=== PATIENT | female | born 1960 | race Caucasian/White ===

== ENCOUNTER 2024-10-16 15:50 | Outpatient (CLI) | payer BC, SELFPAY ==
--- OUTSIDE RECORDS SUMMARY | 2024-10-16 15:59 | XMS_ITS | Clinical Summary ---
Author Organization [facility] Address [address] [place] [address] Care Team Providers Care Director Of Real Estate Name Role Phone Josr Rodriguez MD Primary Care Provider [phone] Allergies Active Allergy Reactions Criticality Noted Date Comments Penicillins Unknown Low 10/19/2018 Childhood Medications losartan-hydroC HLOROthiazide (HYZAAR) 100-12.5 mg per tablet Take 1 tablet by mouth daily 11/04/2021 Active omeprazole (PriLOSEC) 40 mg capsule Take 1 Capsule (40 mg) by mouth daily. 10/28/2022 Active pravastatin (PRAVACHOL) 40 mg tablet Take 1 tablet (40 mg total) by mouth daily Active Active Problems No known active problems Medical History Medical History Date Comments Hypertension GERD (gastroesophageal reflux disease) Family History Medical History Relation Name Comments Breast cancer Neg Hx Ovarian cancer Neg Hx Thyroid cancer Neg Hx Social History Tobacco Use Types Packs/Day Years Used Date Smoking Tobacco: Former Cigarettes Q uit: 2012 Smokeless Tobacco: Never Tobacco Cessation:Counseling Given: Not Answered Comments No Sex and Gender Information Value Date Recorded Sex Assigned at Not on file 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 Gender Identity Not on file Sexual Orientation Not on file Obstetrics History Para Term AB IAB SAB Ectopic Multiple Livin g Live Births 2 2 2 Date Outcome GA Total Labor Labor/2nd/3rd Weight Sex Type Anes PTL Marge A1 A5 Name Clin Term Term Last Filed Vital Signs Vital Sign Reading Time Taken Comments Blood Pressure 130/80 10/22/2023 8:22 AM CDT Pulse 97 10/22/2023 8:22 AM CDT Temperature 37.4 C (99.4 F) 10/22/2023 8:22 AM CDT Respiratory Rate 21 10/22/2023 8:22 AM CDT Oxygen Saturation 98% 10/22/2023 8:22 AM CDT Inhaled Oxygen Concentration - - Weight 94.3 kg (207 lb 12.8 oz) 10/22/2023 8:22 AM CDT Height 170.2 cm (5' 7 ) 12/25/2022 10:0 2 AM CDT Body Mass Index 32.55 12/25/2022 10:02 AM CDT Plan of Treatment Health Maintenance Due Date Last Done Comments Cervical Cancer Screening 1960 Colon Cancer Screening-Colonoscopy 1960 Depression Screening 1960 Hepatitis C Screening 1960 DTaP/Tdap/Td Vaccine (1 - Tdap) 12/24/1971 Hepatitis B Screening 1978 Regular Well Visit/Exam 18-64 1978 Zoster Vaccine (1 of 2) 2010 Covid-19 Vaccine (2 - season) 2024 08/04/2020 Influenza Vaccine (Season Ended) 2025 Breast Cancer Screening-Mammogram 02/08/2025 02/09/2024, 12/25/2022, 12/11/2021, Additional history exists Pneumococcal vaccine <65 Aged Out No longer eligible based on patient's age to complete this topic Procedures Procedure Name Priority Date/Time Associated Diagnosis Comments SCREENING MAMMOGRAM BILATERAL W JERAD Schedule Routine, Read Routine (OP Routine) 02/09/2024 3:22 PM CDT Screening mammogram for breast cancer from Last 3 Months or Most Recently Relevant to Health Maintenance Results * Screening Mammogram Bilateral W Jerad (02/09/2024 3:22 PM CDT) Anatomical Region Laterality Modality Breast Bilateral Mammography 02/09/2024 4:00 PM CDT Impressions 02/09/2024 4:00 PM CDT There is no mammographic evidence of malignancy. A 1 year screening mammogram is recommended. BI-RADS: 1 - Negative. The patient has been or will be contacted. The patient will be entered into a reminder system with a target due date of 1 year for her next mammogram. Electronically signed by: JAN Morse 02/09/2024 4:00 PM CDT EXAMINATION: SCREENING MAMMOGRAM BILATERAL W JERAD ORDERING HEALTHCARE PROVIDER: MARY MEJIA HISTORY: Routine screening mammography. COMPARISON: 12/25/2022, 12/11/2021, 12/03/2020, 10/19/2018. TECHNIQUE: CC and MLO views of both breasts were obtained with digital technique using digital breast tomosynthesis with C view. Computer aided detection was utilized. FINDINGS: DENSITY: There are scattered areas of fibroglandular density. BREASTS: There is no new suspicious finding in either breast on mammogram. us Mary Mejia COOKER CLEANER IMG MAMMO PROCEDURES Final Res ult from Last 3 Months or Most Recently Relevant to Health Maintenance Insurance [employer] Referly [employer]ESS CHOICE Care Teams Director Of Real Estate Relationship Specialty Start Date End Date Josr Rodriguez MD [address] [place] [address] PCP - General 08/31/16
--- OUTSIDE RECORDS SUMMARY | 2024-10-16 15:59 | XMS_ITS | Continuity of Care Document ---
Author Organization [facility] Address [address] [place] [address] Phone Care Team Providers Care Senior Media Director Name Role Phone Lino Mills MD Unavailable Unavailable Advance Directives Directive Yes / No Effective Date File Name No Information Encounters Encounter Description Practice Location Reason(s) For Visit Diagnoses Date Provider Providers Copied on Encounter [facility], [address] [place] [address], [facility], tel:[phone] [facility] No Information Vito- [address] [place], [place], [id number] . tel: [phone] [facility], [address], [facility], tel:[phone] [facility], subsequent encounter [address] [place], [place], [id number] . tel: [phone] Family History Family Member Type Diagnosis Age At Onset No Information Payers Payer name Insurance type Covered alliance party ID Stephen good(s) [employer] [id number] Social History Type Description Quantity Date Captured Comments Sex Female Smoking Status No Information Chief Complaint And Reason For Visit No Information Reason For Referral Reason For Referral No Information Plan Of Treatment Date Type Action Status Referral Ordered: MRI ANY JT UXTR C+ MATRL LT shoulder ordered History Of Present Illness Encounter Date Complaint History Of Prese nt Illness No Information Functional Status Date Functional Assessmen t No Information Instructions Date Instruction Additional Infor mation No Information Assessments Type Assessment Date No Information Patient Care Teams Name Effective Dates (start - stop) Status Members No Information
--- OUTSIDE RECORDS SUMMARY | 2024-10-16 15:59 | XMS_ITS | Clinical Summary ---
Author Organization [facility] Address [address] Severino: Epic Prelude ADT MILIND BENZ [address] Care Team Providers Care Director Of Events Name Role Phone Unavailable Primary Care Provider Unavailabl e Medications clotrimazole-be tamethasone (LOTRISONE) 1-0.05 % Cream Apply to rash areas twice daily for 10 days 45 Gram 12/21/2021 4:49 PM CDT 12/21/2021 Active omeprazole (PriLOSEC) 40 mg Capsule, Delayed Release(E.C.) Take 1 Capsule by mouth daily. 90 Capsule 02/03/2022 4:39 PM CDT 02/02/2022 Active losartan-hydroC HLOROthiazide (HYZAAR) 100-12.5 mg tablet TAKE ONE TABLET BY MOUTH ONCE DAILY 90 Tablet 1 05/05/2023 10:15 AM NUCLEAR REACTOR TECHNICIAN 05/25/2022 Active losartan-hydroC HLOROthiazide (HYZAAR) 100-12.5 mg tablet Take 1 Tablet by mouth daily. 90 Tablet 1 02/23/2023 6:47 PM CDT 10/28/2022 Active doxycycline hyclate (VIBRAMYCIN) 100 mg capsule TAKE 1 CAPSULE BY MOUTH TWICE DAILY FOR 10 DAYS. 20 Capsule 11/25/2022 11:16 AM CDT 11/25/2022 Active diazePAM (VALIUM) 5 mg tablet Take 1 tablet at bedtime the night prior to dental appointment, then take 1-2 tablets 1 hour prior to dental appointment. 6 Tablet 08/16/2023 1:03 PM CDT 06/06/2023 Active cephALEXin (KEFLEX) 500 mg capsule Take 1 capsule (500 mg total) by mouth 2 (two) times a day for 7 days 14 Capsule 10/22/2023 9:14 AM CDT 10/22/2023 Active pravastatin (PRAVACHOL) 40 mg tablet Take 1 Tablet by mouth every evening. 90 Tablet 1 06/13/2024 12:08 PM NUCLEAR REACTOR TECHNICIAN 02/29/2024 Active losartan-hydroC HLOROthiazide (HYZAAR) 100-12.5 mg tablet Take 1 Tablet by mouth daily. 90 Tablet 1 10/09/2024 2:20 PM CDT 04/30/2024 Active omeprazole (PriLOSEC) 40 mg Capsule, Delayed Release(E.C.) Take 1 Capsule (40 mg) by mouth daily. 90 Capsule 06/13/2024 12:08 PM NUCLEAR REACTOR TECHNICIAN 06/11/2024 Active cephALEXin (KEFLEX) 500 mg capsule Take 1 Capsule (500 mg) by mouth 2 times daily for 5 days. 10 Capsule 10/12/2024 12:18 PM CDT 10/11/2024 Active furosemide (LASIX) 20 mg tablet Take 1 Tablet (20 mg) by mouth once daily for 5 days, then hold. 90 Tablet 3 10/12/2024 12:18 PM CDT 10/11/2024 Active Encounters Date Type Department Care Team Description 08/07/2024 External Device Data [facility] ABSTRACTION Provider, Abstract 08/07/2024 External Device Data [facility] ABSTRACTION Provider, Abstract from Last 3 Months Social History Tobacco Use Types Packs/Day Years Used Date Smoking Tobacco: Never Assessed Comments Unknown Sex and Gender Information Value Date Recorded Sex Assigned at Not on file Legal Sex Female 3:27 PM CDT Gender Identity Not on file Sexual Orientation Not on file Plan of Treatment Health Maintenance Due Date Last Done Comments DTAP/TDAP/TD VACCINES (1 - Tdap) 12/24/1979 HPV/Cotest (21-29) 1981 CERVICAL CANCER SCREENING 1990 HPV/Cotest (30-65) 1990 PAP SMEAR 1990 BREAST CANCER SCREENING 2000 COLORECTAL SCREENING 2005 Colorectal Cancer Screening 2005 FIT-DNA Q 3 years 2005 FIT/FOBT Q 1 year 2005 Flex Sig/CT Colonography Q 5 years 2005 ZOSTER VACCINE (1 of 2) 2010 INFLUENZA VACCINE (#1) 2023 RSV VACCINE (60+ or ) (1 - 1-dose 75+ series) 12/24/2035 Insurance RX [employer] (INTERNAL) [facility]
--- OUTSIDE RECORDS SUMMARY | 2024-10-16 15:59 | XMS_ITS | Clinical Summary ---
Author Organization [facility] Address [address] [facility], [facility] [address] [place] [address] Phone Care Team Providers Care Medical Researcher Name Role Phone Josr Rodriguez MD Primary Care Provider Luis Jhaveri DPM Unavailable [phone] Mendez Sultana MD Unavailable [phone] Michele Orr MD Unavailable Allergies Active Allergy Reactions Criticality Noted Date Comments Penicillins Unknown As child Medications pravastatin (PRAVACHOL) 40 MG Tablet Take 1 Tablet by mouth every evening. 90 Tablet 1 02/29/2024 Active losartan-hydroc hlorothiazide (HYZAAR) 100-12.5 MG Tablet Take 1 Tablet by mouth daily. 90 Tablet 1 04/30/2024 Active omeprazole (PriLOSEC) 40 MG CAPSULE DELAYED RELEASE Take 1 Capsule (40 mg) by mouth daily. 90 Capsule 06/11/2024 Active furosemide (LASIX) 20 MG Tablet Daily for 5 days and then hold 90 Tablet 3 10/11/2024 Active cephALEXin (KEFLEX) 500 MG Capsule Take 1 Capsule by mouth 2 times daily for 5 days. 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 Resolved Problems Problem Noted Date Diagnosed Date Resolved Date Shortness of breath 12/09/2021 06/28/19 Synovitis of right foot 12/09/201506/01 Synovitis of left foot 12/09/201506/28 Sesamoiditis 12/09/2015 06/28/2022 Encounters Date Type Department Care Team Description 10/12/2024 Results Follow-Up [facility] Internal Medicine [facility] [address] [place] [address] Rupinder Valle, JHON CREATINE KINASE (CK) TOTAL, US BILATERAL DUPLEX LOWER EXTREMITY VEINS, XR FOOT 3 OR MORE VIEWS BILATERAL 10/11/2024 3:17 PM CDT - 10/11/2024 11:59 PM CDT [facility] [address] [place] [address] Rupinder Valle, JHON Discharge Disposition: Discharged to home or Selfcare 10/11/2024 2:24 PM CDT - 10/11/2024 3:16 PM CDT Hospital Encounter [facility] Ultrasound [address] [place] [address] Rupinder Valle, JHON Discharge Disposition: Discharged to home or Selfcare 10/11/2024 1:00 PM CDT Office Visit [facility] Primary Care [facility] [address] [place] [address] Rupinder Valle, JHON Leg swelling (Primary Dx); Pain in both feet; Redness of skin; Muscle pain Discharge Disposition: Discharged to home or Selfcare 10/11/2024 Results Follow-Up [facility] Care Access [address] [address] Rupinder Valle, PAC ALT (SGPT), AST (SGOT) 10/11/2024 Travel 08/20/2024 Telephone [facility] [address] [place] [phone] Josr Rodriguez MD 08/06/2024 Results Follow-Up [facility] [address] [place] [phone] Josr Rodriguez MD LIPID PANEL, CMP (COMPREHENSIVE METABOLIC PANEL) 08/01/2024 8:15 AM SERVICE OFFICER Office Visit [facility] [address] [place] [address] Josr Rodriguez MD Essential hypertension, benign (Primary Dx); Acute bilateral low back pain without sciatica; Other hyperlipidemia; GERD without esophagitis Discharge Disposition: Discharged to home or Selfcare 08/01/2024 Travel 07/31/2024 Travel from Last 3 Months Immunizations Immunization Administration Dates Next Due Covid-19 Vaccine, Vector-nr, Rs-ad26, Pf, 0.5 Ml (Simple Car Wash/J&J) 08/04/2020 Family History Medical History Relation Name Comments No Known Problems Daughter 1 No Known Problems Daughter 2 Cancer Father lung Lung Cancer Father Neurofibromatosis Father Heart Disease Maternal Grandfather Heart Disease Maternal Grandmother Heart Attack Mother Heart Disease Mother High Cholesterol Mother Hypertension Mother Cancer Paternal Grandfather Cancer Paternal Grandmother High Cholesterol Sister 1 No Known Problems Sister 2 Relation Name Status Comments Daughter 1 Alive Daughter 2 Alive Father Maternal Grandfather Maternal Grandmother Mother Paternal Grandfather Paternal Grandmother Sister 1 Alive Sister 2 Alive Social History Tobacco Use Types Packs/Day Years Used Date Smoking Tobacco: Former Cigarettes 1 15 2010 Passive Smoke Exposure: Past Smokeless Tobacco: Never Tobacco Cessation:Counseling Given: Not Answered Alcohol Use Standard Drinks/Week Comments Yes 0 (1 standard drink = 0.6 oz pur e alcohol) rarely [facility] Utilities Answer Date Recorded In the past 12 months has th e electric, gas, oil, or water [employer] threatened to shut off services in your home? No 01/31/2024 Social Connection and Isolat ion Panel [NHANES] Answer Date Recorded In a typical week, how many times do you talk on the phone with family, friends, or neighbors? More than three times a week 01/31/2024 How often do you get togethe r with friends or relatives? More than three times a week 01/31/2024 How often do you attend chur ch or alevism services? Never 01/31/2024 Do you belong to any clubs o r organizations such as zoroastrianism groups, unions, fraternal or athletic groups, or school groups? No 01/31/2024 How often do you attend meet ings of the clubs or organizations you belong to? Never 01/31/2024 Are you , , di vorced, , never , or living with a partner? 01/31/2024 AUDIT-C Answer Date Recorded Q1: How often do you have a drink containing alc ohol? Monthly or less 01/31/2024 Q2: How many drinks containi ng alcohol do you have on a typical day when you are drinking? 1 or 2 01/31/2024 Q3: How often do you have si x or more drinks on one occasion? Never 01/31/2024 Overall Financial Resource Strain (CARDIA) Answe r Date Recorded How hard is it for you to pa y for the very basics like food, housing, medical care, and heating? Not very hard 01/31/2024 PHQ-2 Answer Date Recorded Total Score - Questions 1-9 0 09/2024 [facility] - Occupational Stress Questionnaire Answer Date Recorded Do you feel stress - tense, restless, nervous, or anxious, or unable to sleep at night because your mind is troubled all the time - these days? Only a little 01/31/2024 Exercise Vital Sign Answer Date Recorde d On average, how many days pe r week do you engage in moderate to strenuous exercise (like a brisk walk)? 2 days 01/31/2024 On average, how many minutes do you engage in exercise at this level? 120 min 01/31/2024 Hunger Vital Sign Answer Date Recorded Within the past 12 months, y ou worried that your food would run out before you got the money to buy more. Never true 01/31/20 24 Within the past 12 months, t he food you bought just didn't last and you didn't have money to get more. Never true 01/31/2024 PRAPARE - Transportation Answer Date Re corded In the past 12 months, has l ack of transportation kept you from medical appointments or from getting medications? No 07/2023 In the past 12 months, has l ack of transportation kept you from meetings, work, or from getting things needed for daily living? No 01/31/2024 Housing Stability Vital Sign Answer Herrera e Recorded In the last 12 months, was t here a time when you were not able to pay the mortgage or rent on time? No 07/05/2023 In the last 12 months, how many places have you lived? 2 07/05/2023 In the last 12 months, was t here a time when you did not have a steady place to sleep or slept in a senior care (including now)? No 07/05/2023 Housing Stability Vital Sign Answer Herrera e Recorded In the last 12 months, was t here a time when you were not able to pay the mortgage or rent on time? No 01/31/2024 Number of Times Moved in the Last Year Not on fi le 01/31/2024 At any time in the past 12 m [facility], were you homeless or living in a senior care (including now)? 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 Not on file Not on file Not on file Last Filed Vital Signs Vital Sign Reading Time Taken Comments Blood Pressure 140/84 10/11/2024 1:02 PM CDT Pulse 124 10/11/2024 1:02 PM CDT Temperature 36.3 C (97.3 F) 10/11/2024 1:02 PM CDT Respiratory Rate 12 10/11/2024 1:02 PM CDT Oxygen Saturation 98% 10/11/2024 1:02 PM CDT Inhaled Oxygen Concentration - - Weight 95.3 kg (210 lb) 08/01/2024 8:15 AM SERVICE OFFICER Height 170.2 cm (5' 7 ) 08/01/2024 8:15 AM SERVICE OFFICER Body Mass Index 32.89 08/01/2024 8:15 AM SERVICE OFFICER Plan of Treatment Upcoming Encounters Date Type Department Care Team (Late st Contact Info) Description 02/04/2025 8:45 AM CDT Office Visit [facility] - Internal Medicine - [place] [address] [place] [address] Josr Rodriguez MD [address] [place] [address] Health Maintenance Due Date Last Done Comments Hepatitis C Virus (HCV) Screening 1960 TdaP Immunization 1960 HPV/Cotest 1990 Cologuard 2010 Pneumococcal Immunization (50+ years) (1 of 1 - PCV) 2010 Zoster Immunization (1 of 2) 2010 Immunochemical Fecal Occult Blood 07/04/2020 07/04/2019 SARS-COV-2 Immunization ( season) 2024 06/08/2021, 08/04/2020 Mammogram 02/08/2025 02/09/2024, 11/28, 12/25/2022, Additional history exists Cervical Cancer Screening (CCS) 11/08/2025 Pap Smear 11/08/2025 11/08/2022, 07/04/2019 Colonoscopy 06/14/2029 06/14/2024, 05/30, 02/09/2022, Additional history exists Colorectal Cancer Screening 06/14/2029 Respiratory Syncytial Virus (RSV) Immunization (Adult) (1 - 1-dose 75+ series) 12/24/2035 06/14/2024, 01/28, 10/02/2013, Additional history exists Hepatitis B Immunization Aged Out No longer eligible based on patient's age to complete this topic Human Papillomavirus (HPV) Immunization Aged Out No longer eligible based on patient's age to complete this topic Influenza Immunization Discontinued Meningococcal Immunization (ACWY) Aged Out No longer eligible based on patient's age to complete this topic Rotavirus Immunization Aged Out No lo nger eligible based on patient's age to complete this topic Procedures Procedure Name Priority Date/Time Associated Diagnosis Comments XR FOOT 3 OR MORE VIEWS BILATERAL Stat with Interpretation 10/11/2024 3:30 PM CDT Pain in both feet US BILATERAL DUPLEX LOWER EXTREMITY VEINS Stat with Interpretation 10/11/2024 3:08 PM CDT Leg swelling CREATINE KINASE (CK) TOTAL Routine 10/11/2024 2:23 PM CDT Muscle pain AST (SGOT) Routine 10/11/2024 2:23 PM CDT Other hyperlipidemia ALT (SGPT) Routine 10/11/2024 2:23 PM CDT Other hyperlipidemia EXTERNAL PHYSICAL THERAPY REFERRAL Routine 08/28/2024 12:00 AM CDT Acute bilateral low back pain without sciatica CMP (COMPREHENSIVE METABOLIC PANEL) Routine 08/01/2024 Essential hypertension, benign Other hyperlipidemia LIPID PANEL Routine 08/01/2024 Essential hypertension, benign Other hyperlipidemia MAMMOGRAM BILATERAL GENERIC 12/25/2022 12:00 AM CDT HM COLONOSCOPY Routine 10/02/2013 from Last 3 Months or Most Recently Relevant to Health Maintenance Results * XR FOOT 3 OR MORE VIEWS BILATERAL (10/11/2024 3:30 PM CDT) Anatomical Region Laterality Modality LOWER EXTREMITY, foot Bilateral Digital Ra diography 10/11/2024 5:05 PM CDT Impressions 10/11/2024 5:07 PM CDT IMPRESSION: No acute osseous abnormality. Bilateral (lxxv-npvfkcl-rdeg-right) osteoarthritis of the foot. New spurring of the base of the 5th metatarsal likely degenerative. Mild bilateral soft tissue swelling. Narrative 10/11/2024 5:07 PM CDT EXAM DESCRIPTION: XR FOOT 3 OR MORE VIEWS BILATERAL REASON FOR STUDY: pain in bilat feet x 3 days. NKI. swelling is present. TECHNIQUE: 7 view(s) of the bilateral foot COMPARISON: Right foot radiographs 12/09/2015 FINDINGS: Bilateral calcaneal enthesophytes. New spurring at the base of the right 5th metatarsal when compared to 2016, likely degenerative. Mild osteoarthritis of the intertarsal joints (gmqz-okpssbg-llgf-right). No acute fracture, malalignment or dislocation. Mild bilateral soft tissue swelling. THIS IS AN ELECTRONICALLY VERIFIED FINAL REPORT 10/11/2024 5:05 PM - Electronically signed by Myra Soriano M.D. FT: FT Report ID: [id number] Reading Location: [id number] Procedure Note Myra Hoffmann MD - 10/11/2024 EXAM DESCRIPTION: XR FOOT 3 OR MORE VIEWS BILATERAL REASON FOR STUDY: pain in bilat feet x 3 days. NKI. swelling is present. TECHNIQUE: 7 view(s) of the bilateral foot COMPARISON: Right foot radiographs 12/09/2015 FINDINGS: Bilateral calcaneal enthesophytes. New spurring at the base of the right 5th metatarsal when compared to 2016, likely degenerative. Mild osteoarthritis of the intertarsal joints (ilkv-xdblhrx-hhxq-right). No acute fracture, malalignment or dislocation. Mild bilateral soft tissue swelling. THIS IS AN ELECTRONICALLY VERIFIED FINAL REPORT 10/11/2024 5:05 PM - Electronically signed by Myra Soriano M.D. FT: FT Report ID: [id number] Reading Location: [id number] IMPRESSION: No acute osseous abnormality. Bilateral (pwkr-mjjuadq-ihhs-right) osteoarthritis of the foot. New spurring of the base of the 5th metatarsal likely degenerative. Mild bilateral soft tissue swelling. Rupinder Moodyelle Tori [facility] IMG DIAGNOSTIC OR DERABLES Final Result * US BILATERAL DUPLEX LOWER EXTREMITY VEINS (10/11/2024 3:08 PM CDT) Anatomical Region Laterality Modality vascular Bilateral Ultrasound 10/11/2024 4:03 PM CDT Impressions 10/11/2024 4:06 PM CDT IMPRESSION: No lower extremity deep venous thrombosis. Narrative 10/11/2024 4:06 PM CDT EXAM DESCRIPTION: US BILATERAL DUPLEX LOWER EXTREMITY VEINS REASON FOR STUDY: lower leg edema in bilateral ankles with erythema and tenderness to touch for 2/3 days. TECHNIQUE: Grayscale, color and spectral Doppler imaging of the deep venous system of the bilateral lower extremities was performed. Images stored on PACS. COMPARISON: None FINDINGS: The common femoral, common femoral-saphenous vein confluence, visualized profunda femoral, superficial femoral, and popliteal veins are readily compressible bilaterally with no intraluminal thrombus on garcia scale images. There is normal color and spectral Doppler signal, including augmentation. Greater saphenous vein appears patent. Visualized calf veins are patent. There are several lymph nodes within the groin, all containing fatty amber and nonenlarged by size criteria. THIS IS AN ELECTRONICALLY VERIFIED FINAL REPORT 10/11/2024 4:03 PM - Electronically signed by Cristian Araujo M.D. AM: AM Report ID: [id number] Reading Location: [id number] Procedure Note Cristian Araujo MD - 10/11/2024 EXAM DESCRIPTION: US BILATERAL DUPLEX LOWER EXTREMITY VEINS REASON FOR STUDY: lower leg edema in bilateral ankles with erythema and tenderness to touch for 2/3 days. TECHNIQUE: Grayscale, color and spectral Doppler imaging of the deep venous system of the bilateral lower extremities was performed. Images stored on PACS. COMPARISON: None FINDINGS: The common femoral, common femoral-saphenous vein confluence, visualized profunda femoral, superficial femoral, and popliteal veins are readily compressible bilaterally with no intraluminal thrombus on garcia scale images. There is normal color and spectral Doppler signal, including augmentation. Greater saphenous vein appears patent. Visualized calf veins are patent. There are several lymph nodes within the groin, all containing fatty amber and nonenlarged by size criteria. THIS IS AN ELECTRONICALLY VERIFIED FINAL REPORT 10/11/2024 4:03 PM - Electronically signed by Cristian Araujo M.D. AM: AM Report ID: [id number] Reading Location: [id number] IMPRESSION: No lower extremity deep venous thrombosis. Rupinder Valle [facility] IM US ORDERABLES Final Result * ALT (SGPT) (10/11/2024 2:23 PM CDT) SGPT (ALT) 18 <56 U/L 10/11/2024 3:05 PM CDT [facility] Blood Venipuncture / Unknown 10/11/2024 2:23 PM CDT 10/11/2024 2:46 PM CDT Josr Rodriguez MD CHEMISTRY ORDERABLES Final Result Performing Organization Address City/[facility]/ZIP Co de Phone Number [facility] [address] [place] [address] * AST (SGOT) (10/11/2024 2:23 PM CDT) SGOT (AST) 26 <43 U/L 10/11/2024 3:05 PM CDT [facility] Blood Venipuncture / Unknown 10/11/2024 2:23 PM CDT 10/11/2024 2:46 PM CDT Josr Rodriguez MD CHEMISTRY ORDERABLES Final Result [facility] [address] [place] [address] * CREATINE KINASE (CK) TOTAL (10/11/2024 2:23 PM CDT) CK (CPK) 95 29 - 168 U/L 10/11/2024 3:05 PM CDT [facility] Blood Venipuncture / Unknown 10/11/2024 2:23 PM CDT 10/11/2024 2:46 PM CDT Rupinder FERREIRA HEMATOLOGY ORDERA BLES Final Result Performing Organization Address City/[facility]/ZIP Co de Phone Number [facility] [address] [place] [address] * EXTERNAL PHYSICAL THERAPY REFERRAL (08/28/2024 12:00 AM CDT) 08/28/2024 Josr Rodriguez MD OUTPT REFERRALS EXT/INT Fin al Result Performing Organization Address City/[facility]/ZIP Co de Phone Number SCAN * LIPID PANEL (08/01/2024) Blood 08/01/2024 Josr Rodriguez MD CHEMISTRY ORDERABLES Final Result * CMP (COMPREHENSIVE METABOLIC PANEL) (08/01/2024) Blood 08/01/2024 Josr Rodriguez MD CHEMISTRY ORDERABLES Final Result * MAMMOGRAM BILATERAL MISCELLANEOUS (12/25/2022 12:00 AM CDT) 12/25/2022 us Provider Scan IMG MAMMO ORDERABLES Final Resul t Performing Organization Address City/[facility]/ZIP Co de Phone Number SCAN * HM COLONOSCOPY (10/02/2013) Wilfredo Rich DO PROCEDURE/MINOR SURGICAL ORDERA BLES Final Result from Last 3 Months or Most Recently Relevant to Health Maintenance [facility] * Full Code (Latest Code Status on File) Date Activated Date Inactivated Comments 12/09/2021 11:50 AM 12/09/2021 7:00 PM CPR-Full Tr eatment: FULL ARREST: Attempt Resuscitation/CPR wit intubation and mechanical ventilation. PRE-ARREST: Use entire range of life support measures to stabilize the patient. Care Teams Medical Researcher Relationship Specialty Start Date End Date Josr Rodriguez MD [address] [place] [address] PCP - General Internal Medicine 06/30/15 Luis Jhaveri DPM [address] [place] [address] Podiatry 12/09/15 Mendez Sultana MD [address] [address] General Surgery 04/28/16 Michele Orr MD [address] [address] Consulting Physician Colon and Rectal Surgery 04/20/24
--- OUTSIDE RECORDS SUMMARY | 2024-10-16 15:59 | XMS_ITS | Encounter Summary ---
Author Organization [facility] Address [address] [place] [address] Care Team Providers Care Cupola Liner Helper Name Role Phone Unavailable Primary Care Provider Unavailabl e Encounter Details Date Type Department Care Team (Late st Contact Info) Description 04/18/2019 Lab Requisition [facility] DermPath Lab [address] [place] [address] Rupinder Eason MD [address] [place] [address] Social History Tobacco Use Types Packs/Day Years Used Date Smoking Tobacco: Never Assessed Comments Unknown Sex and Gender Information Value Date Recorded Sex Assigned at Not on file Legal Sex Female 10:42 AM CDT Gender Identity Not on file Sexual Orientation Not on file documented as of this encounter Plan of Treatment Not on file documented as of this encounter Procedures Procedure Name Priority Date/Time Associated Diagnosis Comments DERMATOPATHOLOGY Routine 04/18/2019 12:0 0 AM MARKETING CONTENT COORDINATOR documented in this encounter Results * DERMATOPATHOLOGY (04/18/2019 12:00 AM MARKETING CONTENT COORDINATOR) Case Report Dermatopathology Report Case: [id number] Authorizing Provider: Rupinder Eason MD Collected: 04/18/2019 12:00 AM Ordering Location: [facility] Lab Received: 04/18/2019 01:14 PM Pathologist: Osmel Presley MD Specimen: Skin, right ellison 9 1:35 PM MARKETING CONTENT COORDINATOR DERMATOPATHOLOGY LABORATORY Final Diagnosis Specimen A. SKIN, right ellison: DERMATOFIBROMA, ERODED (D23.9) PRESENT AT MARGIN 9 1:35 PM MARKETING CONTENT COORDINATOR DERMATOPATHOLOGY LABORATORY at 1335 MARKETING CONTENT COORDINATOR Clinical History DF, SCC, MM. [place] form papule fam hx of MM. Check margins. 1:35 PM [facility] DERMATOPATHOLOGY LABORATORY Gross Description Specimen A: Received is one formalin filled container labeled with the patient's name and designated right ellison. The specimen consists of a shave measuring [id number]. The margin is inked green. Jar 0. 1:35 PM [facility] DERMATOPATHOLOGY LABORATORY Microscopic Description Specimen A. SKIN, right ellison: There is epidermal hyperplasia. Within the dermis, there are fibrohistiocytic cells in haphazard array among coarse collagen bundles. The epidermis is focally necrotic and covered with a scale-crust. There is fibrin at the base. This lesion is present at the margin of the specimen. 1:35 PM [facility] DERMATOPATHOLOGY LABORATORY Disclaimer An external and internal positive and negative controls are appropriate for the histochemical, immunohistochemical and immunofluorescence stain(s) in this case (if any), except where stated explicitly. The performance characteristics of the stain(s) cited in this report were developed and its performance characteristic determined by the Dermatopathology Laboratory at [facility], directed by Dr. Tatiana Presley. These tests need not be, and therefore are not, approved by the [place] Food and Drug Administration. The tests are used for clinical purposes. Billing Codes Specimen Charges Stain Charges 83423 1 1:35 PM [facility] DERMATOPATHOLOGY LABORATORY Embedded Images 1:35 PM [facility] DERMATOPATHOLOGY LABORATORY Pathology/Cytolog y TISSUE SPECIMEN FROM SKIN / Unknown 04/18/2019 04/18/2019 1:14 PM [facility] us Rupinder Eason MD LAB - PATHOLOGY/CYTOLOGY ORD ERABLES Final Result DERMATOPATHOLOGY LABORATORY [facility] - Department of Dermatology [address] [place] [address], [facility] [phone] documented in this encounter Visit Diagnoses Not on filedocumented in this encounter
--- OUTSIDE RECORDS SUMMARY | 2024-10-16 15:59 | XMS_ITS | Encounter Summary ---
Author Organization [facility] Address [address] [place] [address] Care Team Providers Care Bottle Washer Machine Name Role Phone Unavailable Primary Care Provider Unavailabl e Encounter Details Date Type Department Care Team (Late st Contact Info) Description 06/17/2020 Lab Requisition [facility] DermPath Lab [address] [place] [address] Rupinder Eason MD [address] [place] [address] Social History Tobacco Use Types Packs/Day Years [...] Priority Date/Time Associated Diagnosis Comments DERMATOPATHOLOGY Routine 06/16/2020 12:0 0 AM SAP BW ARCHITECT documented in this encounter Results * DERMATOPATHOLOGY (06/16/2020 12:00 AM SAP BW ARCHITECT) Case Report Dermatopathology Report Case: [id number] Authorizing Provider: Rupinder Eason MD Collected: 06/16/2020 12:00 AM Ordering Location: [facility] Lab Received: 06/17/2020 08:14 AM Pathologist: Emily Kirby MD Specimen: Skin, right post shoulder 1 4:48 PM SAP BW ARCHITECT DERMATOPATHOLOGY LABORATORY Final Diagnosis Specimen A. SKIN, right post shoulder: COMPOUND MELANOCYTIC PROLIFERATION (D48.5) NOT PRESENT AT MARGIN DERMAL SCAR (L90.5) 1 4:48 PM SAP BW ARCHITECT DERMATOPATHOLOGY LABORATORY at 1648 SAP BW ARCHITECT Clinical History CMP, biopsy proven 1 4:48 PM [facility] DERMATOPATHOLOGY LABORATORY Gross Description Specimen A: Received is one formalin filled container labeled with the patient's name and designated right post shoulder.The specimen consists of an ellipse measuring [id number] mm and is oriented with the suture/notch at the 12 o'clock position not labeled on the requisition. The 12 to 6 o'clock margin is inked green. The 6 o'clock to 12 o'clock margin is inked black. The 12 o'clock tip is submitted in cassette 1. The 6 o'clock tip is submitted in cassette 2. The remainder of the ellipse is serially sectioned and submitted in cassettes 3-4. Jar 0. 1 4:48 PM [facility] DERMATOPATHOLOGY LABORATORY Microscopic Description Specimen A. SKIN, right post shoulder: Sections show a residual compound melanocytic proliferation. There is a lentiginous proliferation of melanocytes between irregular nests. This lesion is not present at the margin of the specimen. There are fibroblasts and collagen bundles oriented parallel to the skin surface with elongated blood vessels, some of which are oriented perpendicular to the skin surface. 1 4:48 PM [facility] DERMATOPATHOLOGY LABORATORY Disclaimer An external and internal positive and negative controls are appropriate for the histochemical, immunohistochemical and immunofluorescence stain(s) in this case (if any), except where stated explicitly. The performance characteristics of the stain(s) cited in this report were developed and its performance characteristic determined by the Dermatopathology Laboratory at [facility], directed by Dr. Tatiana Presley. These tests need not be, and therefore are not, approved by the [place] Food and Drug Administration. The tests are used for clinical purposes. Billing Codes Specimen Charges Stain Charges 20934 1 1 4:48 PM [facility] DERMATOPATHOLOGY LABORATORY Embedded Images 1 4:48 PM [facility] DERMATOPATHOLOGY LABORATORY Pathology/Cytolog y TISSUE SPECIMEN FROM SKIN / Unknown 06/16/2020 06/17/2020 8:14 AM SAP BW ARCHITECT us Rupinder Eason MD LAB - PATHOLOGY/CYTOLOGY ORD ERABLES Final Result DERMATOPATHOLOGY LABORATORY [facility] - Department of Dermatology [facility] Specialized Medicine [facility] [phone] documented in this encounter Visit Diagnoses Not on filedocumented in this encounter
--- OUTSIDE RECORDS SUMMARY | 2024-10-16 15:59 | XMS_ITS | Encounter Summary ---
Author Organization [facility] Address [address] [place] [address] Phone Care Team Providers Care Calender Machine Operator Name Role Phone Josr Rodriguez MD Primary Care Provider [phone] Luis Jhvaeri DPM Unavailable [phone] Mendez Sultana MD Unavailable [phone] Michele rOr MD Unavailable Reason for Visit * Reason Comments Medication Refill Encounter Details Date Type Department Care Team (Late st Contact Info) Description 10/13/2023 Refill [facility] - Internal Medicine - [place] [address] [place] [address] Josr Rodriguez MD [address] [place] [address] Medication Refill Social History Tobacco Use Types Packs/Day Years Used Date Smoking Tobacco: Former Cigarettes 1 - 2010 Passive Smoke Exposure: Past Smokeless Tobacco: Never Alcohol Use Standard Drinks/Week Comments Yes 0 (1 standard drink = 0.6 oz pur e alcohol) rarely Social Connection and Isolat ion Panel [NHANES] Answer Date Recorded In a typical week, how many times do you talk on the phone with family, friends, or neighbors? More than three times a week 07/05/2023 How often do you get togethe r with friends or relatives? More than three times a week 07/05/2023 How often do you attend chur ch or mormonism services? Never 07/05/2023 Do you belong to any clubs o r organizations such as mosque groups, unions, fraternal or athletic groups, or school groups? No 07/05/2023 How often do you attend meet ings of the clubs or organizations you belong to? Never 07/05/2023 Are you , , di vorced, , never , or living with a partner? 07/05/2023 AUDIT-C Answer Date Recorded Q1: How often do you have a drink containing alc ohol? Monthly or less 07/05/2023 Q2: How many drinks containi ng alcohol do you have on a typical day when you are drinking? 1 or 2 07/05/2023 Q3: How often do you have si x or more drinks on one occasion? Less than monthly 07/05/2023 Overall Financial Resource Strain (CARDIA) Answe r Date Recorded How hard is it for you to pa y for the very basics like food, housing, medical care, and heating? Not hard at all 07/05/2023 PHQ-2 Answer Date Recorded Total Score - Questions 1-9 0 05/31 [facility] Occupat ional [facility] - Occupational Stress Questionnaire Answer Date Recorded Do you feel stress - tense, restless, nervous, or anxious, or unable to sleep at night because your mind is troubled all the time - these days? Not at all 07/05/2023 Exercise Vital Sign Answer Date Recorde d On average, how many days pe r week do you engage in moderate to strenuous exercise (like a brisk walk)? 3 days 07/05/2023 On average, how many minutes do you engage in exercise at this level? 60 min 07/05/2023 Hunger Vital Sign Answer Date Recorded Within the past 12 months, y ou worried that your food would run out before you got the money to buy more. Never true 07/05/19 24 Within the past 12 months, t he food you bought just didn't last and you didn't have money to get more. Never true 07/05/2023 PRAPARE - Transportation Answer Date Re corded In the past 12 months, has l ack of transportation kept you from medical appointments or from getting medications? No 10/2023 In the past 12 months, has l ack of transportation kept you from meetings, work, or from getting things needed for daily living? No 07/05/2023 Housing Stability Vital Sign Answer [...] place to sleep or slept in a nursing home (including now)? 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 Requested Prescriptions Pending Prescriptions Disp Refills omeprazole (PriLOSEC) 40 MG CAPSULE DELAYED RELEASE [Pharmacy Med Name: omeprazole 40 mg capsule,delayed release (PriLOSEC)] 90 Capsule 0 Sig: Take 1 Capsule (40 mg) by mouth daily. Proton Pump Inhibitors Protocol Passed - 10/13/2023 4:49 PM Passed - Visit with relevant provider in past 12 months or upcoming 90 days Recent Visits Date Type Provider Dept 07/05/23 Office Visit [facility] [place] 12/29/22 [facility] Visit [facility] [place] Showing recent visits within past 365 days and meeting all other requirements Future Appointments Date Type Provider Dept 01/03/24 Appointment [facility] [place] [facility] [place] Showing future appointments within next 90 days and meeting all other requirements documented in this encounter Plan of Treatment Upcoming Encounters Date Type Department Care Team (Late st Contact Info) Description 02/04/2025 8:45 AM CDT Office Visit [facility] - Internal Medicine - [place] [address] [place] [address] Josr Rodriguez MD [address] [place] [address] documented as of this encounter Visit Diagnoses Not on filedocumented in this encounter Additional Health Concerns Assessment Noted Time PHQ-9 Depression Total Score: 0 07/05/19 9:59 AM ANTIQUE 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
--- OUTSIDE RECORDS SUMMARY | 2024-10-16 15:59 | XMS_ITS | Encounter Summary ---
Author Organization [facility] Address [address] [place] [address] Care Team Providers Care Soil Conservation Technician Name Role Phone Unavailable Primary Care Provider Unavailabl e Encounter Details Date Type Department Care Team (Late st Contact Info) Description 04/17/2020 Lab Requisition [facility] DermPath Lab [address] [place] [address] Rupinder Eason MD [address] [facility] [address] [place] [address] Social History Tobacco Use Types Packs/Day Years [...] Priority Date/Time Associated Diagnosis Comments DERMATOPATHOLOGY Routine 04/16/2020 12:0 0 AM CASH APPLICATIONS ANALYST documented in this encounter Results * DERMATOPATHOLOGY (04/16/2020 12:00 AM CASH APPLICATIONS ANALYST) Case Report Dermatopathology Report Case: [id number] Authorizing Provider: Rupinder Eason MD Collected: 04/16/2020 12:00 AM Ordering Location: [facility] DermPath Lab Received: 04/17/2020 05:40 AM Pathologist: Savanna Light MD Specimen: Skin, right post shoulder 0 1:01 PM CASH APPLICATIONS ANALYST DERMATOPATHOLOGY LABORATORY Final Diagnosis Specimen A. SKIN, right post shoulder: COMPOUND MELANOCYTIC PROLIFERATION; PRESENT AT MARGIN (D48.5) (see microscopic description and comment) 0 1:01 PM CASH APPLICATIONS ANALYST DERMATOPATHOLOGY LABORATORY at [address] [facility] Clinical History R/O melanoma,nevus, LPLK 0 1:01 PM [facility] DERMATOPATHOLOGY LABORATORY Gross Description Specimen A: Received is one formalin filled container labeled with the patient's name and designated right post shoulder. The specimen consists of a shave biopsy measuring 8x6x1 mm. Jar 0. 0 1:01 PM [facility] DERMATOPATHOLOGY LABORATORY Microscopic Description Specimen A. SKIN, right post shoulder: Sections show a compound melanocytic proliferation. There is a lentiginous proliferation of melanocytes between irregular nests, highlighted by MART-1/Melan-A immunostain. Scattered melanocytes show evidence of upward migration within the epidermis. In the dermis there are irregular nests of melanocytes, some with spindle cell morphology. This lesion is present at the margin of the specimen. COMMENT: Because this lesion is present at the margin of the specimen, a complete but conservative re-excision is recommended to evaluate this lesion in its entirety and assure complete removal. This case was also reviewed by Dr. Frances Maloney, who agrees. 0 1:01 PM [facility] DERMATOPATHOLOGY LABORATORY Disclaimer An external and internal positive and negative controls are appropriate for the histochemical, immunohistochemical and immunofluorescence stain(s) in this case (if any), except where stated explicitly. The performance characteristics of the stain(s) cited in this report were developed and its performance characteristic determined by the Dermatopathology Laboratory at [facility], directed by Dr. Tatiana Presley. These tests need not be, and therefore are not, approved by the [place] Food and Drug Administration. The tests are used for clinical purposes. Billing Codes Specimen Charges Stain Charges 98329 1 97814 1 0 1:01 PM [facility] DERMATOPATHOLOGY LABORATORY Embedded Images 0 1:01 PM [facility] DERMATOPATHOLOGY LABORATORY Pathology/Cytolog y TISSUE SPECIMEN FROM SKIN / Unknown 04/16/2020 04/17/2020 5:40 AM [facility] us Rupinder Eason MD LAB - PATHOLOGY/CYTOLOGY ORD ERABLES Final Result DERMATOPATHOLOGY LABORATORY [facility] - Department of Dermatology [address], [address] [phone] documented in this encounter Visit Diagnoses Not on filedocumented in this encounter
--- OUTSIDE RECORDS SUMMARY | 2024-10-16 15:59 | XMS_ITS | Encounter Summary ---
Author Organization [facility] Address [address] [place] [address] Phone Care Team Providers Care Research Intern Name Role Phone Josr Rodriguez MD Primary Care Provider [phone] Luis Jhaveri DPM Unavailable [phone] Mendez Sultana MD Unavailable [phone] Michele Orr MD Unavailable Reason for Visit * Reason Comments Medication Refill Encounter Details Date Type Department Care Team (Late st Contact Info) Description 10/13/2023 Refill [facility] - Internal Medicine - [place] [address] [place] [address] Rupinder Valle, [facility] [address] [place] [address] Medication Refill Social History Tobacco [...] often do you attend chur ch or zoroastrianism services? Never 07/05/2023 Do you belong to any clubs o r organizations such as pentecostalism groups, unions, fraternal or athletic groups, or [...] Total Score - Questions 1-9 0 05/31 [facility] of Occupat ional [facility] - Occupational Stress Questionnaire Answer Date Recorded [...] place to sleep or slept in a long-term (including now)? 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 Requested Prescriptions Pending Prescriptions Disp Refills losartan-hydrochlorothiazide (HYZAAR) 100-12.5 MG Tablet [Pharmacy Med Name: losartan 100 mg-hydrochlorothiazide 12.5 mg tablet (HYZAAR)] 90 Tablet 1 Sig: Take 1 Tablet by mouth daily. ANGIOTENSIN-II RECEPTOR BLOCKERS-DIURETICS COMBO PROTOCOL Failed - 10/13/2023 4:49 PM Failed - Serum potassium on record in past 12 months POTASSIUM Date Value Ref Range Status 12/09/2021 4.3 3.5 - 5.1 mmol/L Final Failed - Serum sodium on record in past 12 months SODIUM Date Value Ref Range Status 12/09/2021 141 136 - 145 mmol/L Final Failed - GFR on record in past 12 months GFR, EST. NONAFRICAN Date Value Ref Range Status 12/09/2021 >60 >=60 Final Passed - BP on record in the past year Clinician-entered: BP Readings from Last 3 Encounters: 07/05/23 130/70 12/29/22 130/76 06/28/22 142/80 Patient-entered: No data recorded Passed - Visit with relevant provider in past year or upcoming 90 days Recent Visits Date Type Provider Dept 07/05/23 Office Visit Josr Rodriguez MD [facility] 12/29/22 Office Visit Josr Rodriguez MD [facility] [place] Showing recent visits within past 365 days and meeting all other requirements Future Appointments Date Type Provider Dept 01/03/24 Appointment Josr Rodriguez MD [facility] [place] Showing future appointments within next 90 days and meeting all other requirements documented in this encounter Plan of Treatment Upcoming Encounters Date Type Department Care Team (Late st Contact Info) Description 02/04/2025 8:45 AM CDT Office Visit [facility] - Internal Medicine - [place] [address] [place] [address] Josr Rodriguez MD [address] [place] [address] documented as of this encounter Visit Diagnoses Not on filedocumented in this encounter Additional Health Concerns Assessment Noted Time PHQ-9 Depression Total Score: 0 07/05/19 24 9:59 AM RECRUITING CONSULTANT documented as of this encounter Care Teams Research Intern Relationship Specialty Start Date End Date Josr Rodriguez MD [address] [place] [address] PCP - General Internal Medicine 06/30/15 Luis Jhaveri DPM [address] [place] [address] Podiatry 12/09/15 Mendez Sultana MD #[address] [address] General Surgery 04/28/16 Michele Orr MD #[address] [address] Consulting Physician Colon and Rectal Surgery 04/20/24 documented as of this encounter
--- OUTSIDE RECORDS SUMMARY | 2024-10-16 15:59 | XMS_ITS | Clinical Summary ---
Author Organization [facility] Address [address] [place] [address] Care Team Providers Care Landcare Officer Name Role Phone Unavailable Primary Care Provider Unavailabl e Source Comments [facility],non-owned Affiliates and Associated Physician Practices is amultiple site organization consisting of ambulatory clinics and hospital sitesin [place] and [place]. This disclosure is being madepursuant to the Care Everywhere program and may not contain all information available regarding this patient. Last updated 18[facility] Social History Tobacco Use Types Packs/Day Years Used Date Smoking Tobacco: Never Assessed Comments Unknown Sex and Gender Information Value Date Recorded Sex Assigned at Not on file Legal Sex Female 10:42 AM CDT Gender Identity Not on file Sexual Orientation Not on file Plan of Treatment Health Maintenance Due Date Last Done Comments COLOGUARD (AGES 45-75) - COL ON CA SCREENING 1960 COLON MONITORING 1960 COLONOSCOPY - COLON CA SCREENING 1960 CT COLONOGRAPHY - COLON CA SCREENING 1960 Colorectal Cancer Screening 1960 FIT - COLON CA SCREENING 1960 FLEX SIG - COLON CA SCREENING 1960 LIPID TESTING 1960 MAMMOGRAM 1960 HIV SCREENING 12/24/1975 HEPATITIS C SCREENING 12/19/1978 DTAP/TDAP/TD VACCINES (1 - Tdap) 12/24/1979 PNEUMOCOCCAL VACCINE 50+ (1 of 1 - PCV) 2010 ZOSTER VACCINE (1 of 2) 2010 COVID-19 VACCINE ( - 2023-2 5 season) 2024 DEPRESSION SCREENING 05/30/2024 INFLUENZA VACCINE (Season Ended) 2025 Respiratory Syncytial Virus (RSV) Vaccine Pt: or over 60 yrs (1 - 1-dose 75+ series) 12/24/2035 HEPATITIS B VACCINE Aged Out No longe r eligible based on patient's age to complete this topic HIB VACCINE Aged Out No longer eligi ble based on patient's age to complete this topic HPV VACCINE Aged Out No longer eligi ble based on patient's age to complete this topic MENINGOCOCCAL (Group B) VACC INE SHARED DECISION-MAKING Aged Out No longer eligibl e based on patient's age to complete this topic MENINGOCOCCAL GROUPS A/C/Y/W VACCINE Aged Out No longer eligible b ased on patient's age to complete this topic Insurance
--- OUTSIDE RECORDS SUMMARY | 2024-10-16 15:59 | XMS_ITS | Continuity of Care Document ---
Author Organization [facility] Address [address] [place] [address] Phone Care Team Providers Care Tank Processor Name Role Phone Rama Sy OD Unavailable Unavailable Allergies, Adverse Reactions, Alerts Substance Reaction Status Criticality PENICILLIN Active No Information Medications Medication Instructions Dosage Effective Dates (start - stop) Status Comments pravastatin 40 mg tablet take 1 tablet by oral route every day 40 MG - Active losartan 50 mg tablet take 1 tablet by o ral route every day 50 MG - Active omeprazole 40 mg capsule,delayed release take 1 capsule by oral route every day before a meal 40 MG - Active Procedures Procedure Date No Charge Optomap Fundus Photos Office/outpatient Visit, Est Fundus Photography W/ Report Eye Exam & Treatment Refraction Fundus Photography W/ Report Eye Exam & Treatment Fundus Photography W/ Report Office/outpatient Visit, Est Eye Exam, New Patient Advance Directives Directive Yes / No Effective Date File Name Other Directive No N/A N/A WARNING:The information contained in this section is historical and is provided for information only and does not constitute a legal document or any assurance that the information is still accurate. Please verify the information with the cox of the legal document before using it for clinical purposes. Encounters Encounter Description Practice Location Reason(s) For Visit Diagnoses Date Provider Providers Copied on Encounter Office/outpa tient Visit, Est [facility], [facility] [employer] [address], [place], [place], [id number], [place] tel:[phone] [place] Professional Complete Exam (chief complaint) Age-related nuclear cataract, bilateralConge nital hypertrophy of retinal pigment epitheliumEpir etinal membrane (ERM) of left eyePresumed ocular histoplasmosis syndrome (POHS) of left eyeVitreous degeneration, bilateral Mar-0 5-202 5 Kerrie OD Rama. [facility] [employer], [address], [place], [place], [address], [place]. tel:[phone] Referring Provider: Lino Bolivar, [address] [facility] [address], [place], [address] . tel:[phone] [facility], [facility] [employer] [address], [place], [place], [address], tel:[phone] [place] Professional Complete Exam (chief complaint) Age-related nuclear cataract, bilateralEpire tinal membrane (ERM) of left eyePresumed ocular histoplasmosis syndrome (POHS) of left eyeVitreous degeneration, bilateralConge nital hypertrophy of retinal pigment epithelium 0- 4 Kerrie OD Rama. [facility] [employer], [address], [place], [place], [address], [place]. tel:[phone] Referring Provider: Rama Sy OD L, [facility] [address], [place], [address] . tel:[phone] [facility] [employer] [facility], [facility] [employer] [address], [place], [place], [address], [place] tel:[phone] [place] Professional Complete Exam (chief complaint) Age-related nuclear cataract, bilateralConge nital hypertrophy of retinal pigment epitheliumHist oplasmosisEpir etinal membrane (ERM) of left eye Sep- 2 Mikhail Huynh. [address] [facility], [facility] [place], [address], [place]. tel:[phone] Referring Provider: Lino Bolivar, [address], [place], [address] . tel:[phone] Office/outpa tient Visit, Est [facility], [address] [place] [address] [address], [place], [place], [address], tel:[phone] [place] Professional Follow up visit (chief complaint) Vitreous degeneration, bilateral 1 Mikhail Huynh. [address], [place], [place], [address], [place]. tel:[phone] Referring Provider: Lino Bolivar, [address] [facility] [address], [place], [address] . tel:[phone] [facility], [address] [place] [address] [address], [place], [place], [address], tel:[phone] [place] Professional Complete Exam (chief complaint) Congenital hypertrophy of retinal pigment epitheliumVitr eous degeneration, bilateralAge-r elated nuclear cataract, bilateralHisto plasmosis 1 Mikhail Huynh. [address] [facility], [place], [place], [address], [place]. tel:[phone] Referring Provider: Lino Bolivar, [address] [facility] [address], [place], [address] . tel:[phone] [facility], [address] [place] [address] [address], [place], [place], [address], tel:[phone] [place] Professional No Information 1 Mikhail Huynh. [address] [facility], [address], [place], [place], [address], . tel:[phone] Family History Family Member Type Diagnosis Age At Onset No Information Payers Payer name Insurance type Covered constitution party ID Authorkrystina good(s) Dianne [facility] [id number] Social History Type Description Quantity Date Captured Comments Alcohol Use Details Caffeine Use Details Tobacco Use Status Ex-cigarette smoker 025 Smoking Status Former smoker Smoking Tobacco Use Details Cigarette: Age Stopped: 51 Cigarette: 1 Packs per day Sex Female Chief Complaint And Reason For Visit From encounter dated '08/01/2024 10:30'. Complete Exam (chief complaint). Description: The 63 year old patient presents for a complete exam ou. Patient denies any changes in vision ou. Patient forgot her most current glasses. Patient is notbothered by floaters but every now and then she catches a flash of light. Reason For Referral Reason For Referral No Information Plan Of Treatment Date Type Action Status Goal Tobacco cessation counseling completed Goal Tobacco cessation counseling completed Patient Education Cataracts: Care Instruc tions completed Patient Education Learning About Vitreous Detachment completed Patient Education Cataracts: Care Instruc tions completed Patient Education Learning About Vitreous Detachment completed Patient Education Learning About Vitreous Detachment completed History Of Present Illness Encounter Date Complaint History Of Prese nt Illness Complete Exam The 63 year old patient presents for a complete exam ou. Patient denies any changes in vision ou. Patient forgot her most current glasses. Patient is not bothered by floaters but every now and then she catches a flash of light. Complete Exam The 62 year old patient presents for a complete exam ou. Monitoring cataracts ou and has hx of PVD ou. Patient states every now and then she gets a flash of light OS temporally. Patient states she thought the flash went away for awhile but is seeing it again every now and then. Complete Exam The 61 year old patient presents for evaluation of Complete Exam in the right eye and left eye. Hx of PVD OU, histoplasmosis, and mild Cataracts OU. Patient denies any changes or problems with eyes. VA seems stable OU. Patient would like a new rx for glasses today and DOES NOT want a bifocal in her glasses Rx. Follow up visit The 60 year old female presents for a 1 month PVD ou follow up. Patient states floaters are less noticeable and still has the flashes of lights but only sees them at night. Complete Exam The 60 year old female presents for a complete exam ou. Patient c/o floaters OS unset was January 15. Patient states she notices flashes of lights in OS at night. Patient states her night vision is horrible for quite a few years. Patient wears SV glasses and wears them to drive. 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
--- OUTSIDE RECORDS SUMMARY | 2024-10-16 15:59 | XMS_ITS | Encounter Summary ---
Author Organization [facility] Address [address] [place] [address] Phone Care Team Providers Care Hired Worker Name Role Phone Josr Rodriguez MD Primary Care Provider [phone] Luis Jhaveri DPM Unavailable [phone] Mendez Sultana MD Unavailable [phone] Michele Orr MD Unavailable Reason for Visit * Reason Comments Medication Refill Encounter Details Date Type Department Care Team (Late st Contact Info) Description 04/02/2021 Refill [facility] - Internal Medicine - [place] [address] [place] [address] Josr Rodriguez MD [address] [place] [address] Medication Refill Social History Tobacco Use Types Packs/Day Years Used Date Smoking Tobacco: Former Cigarettes 1 15 2010 Smokeless Tobacco: Never Alcohol Use Standard Drinks/Week Comments Yes 0 (1 standard drink = 0.6 oz pur e alcohol) rarely PHQ-2 Answer Date Recorded Total Score - Questions 1-9 0 01/0 08/2020 Comments No Sex and Gender Information Value Date Recorded Sex Assigned at Not on file Legal Sex Female 9:45 PM CDT Gender Identity Not on file Sexual Orientation Not on file 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 Requested Prescriptions Pending Prescriptions Disp Refills losartan-hydrochlorothiazide (HYZAAR) 100-12.5 MG Tablet [Pharmacy Med Name: LOSARTAN-HCTZ 100-12.5MG TAB] 90 Tablet 1 Sig: TAKE ONE TABLET BY MOUTH ONCE DAILY ANGIOTENSIN-II RECEPTOR BLOCKERS-DIURETICS COMBO PROTOCOL Failed - 04/02/2021 10:18 AM Failed - Serum potassium on record in past 12 months No results found for: POTASSIUM, POCTK Failed - Serum sodium on record in past 12 months No results found for: SODIUM Failed - GFR on record in past 12 months No results found for: GFRNA Passed - BP on record in the past year Clinician-entered: BP Readings from Last 3 Encounters: 12/02/20 128/80 06/02/20 132/70 06/03/17 120/84 Patient-entered: No data recorded Passed - Visit with relevant provider in past year or upcoming 90 days Recent Visits Date Type Provider Dept 12/02/20 Office Visit Josr Rodriguez MD [facility] 06/02/20 Office Visit Josr Rodriguez MD [facility] Showing recent visits within past 365 days and meeting all other requirements Future Appointments Date Type Provider Dept 06/04/21 Appointment Josr Rodriguez MD [facility] Showing future appointments within next 90 days and meeting all other requirements documented in this encounter Plan of Treatment Upcoming Encounters Date Type Department Care Team (Late st Contact Info) Description 02/04/2025 8:45 AM CDT Office Visit [facility] - Internal Medicine - [place] [address] [place] [address] Josr Rodriguez MD [address] [facility] [place] [address] documented as of this encounter Visit Diagnoses Not on filedocumented in this encounter Additional Health Concerns Assessment Noted Time PHQ-9 Depression Total Score: 0 06/02/19 21 9:00 AM TOUCHER UP documented as of this encounter Care Teams Hired Worker Relationship Specialty Start Date End Date Josr Rodriguez MD [address] [place] [address] PCP - General Internal Medicine 06/30/15 Luis Jhaveri DPM [address] [place] [address] Podiatry 12/09/15 Mendez Sultana MD [address] [address] General Surgery 04/28/16 Michele Orr MD [address] [address] Consulting Physician Colon and Rectal Surgery 04/20/24 documented as of this encounter
--- OUTSIDE RECORDS SUMMARY | 2024-10-16 15:59 | XMS_ITS | Referral Summary ---
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 us Mary Me[facility] MAMMO PROCEDURES Final Res ult from Last 3 Months or Most Recently Relevant to Health Maintenance Insurance ANTHEM ACCESS CHOICE ANTHEM ACCESS CHOICE Care Teams Shirt Maker Relationship Specialty Start Date End Date Josr Rodriguez MD [address] [place] [address] PCP - General 08/31/16
--- OUTSIDE RECORDS SUMMARY | 2024-10-16 15:59 | XMS_ITS | Encounter Summary ---
Author Organization [facility] Address [address] [place] [address] Phone Care Team Providers Care Grief Counsellor Name Role Phone Josr Rodriguez MD Primary Care Provider [phone] Luis Jhaveri DPM Unavailable [phone] Mendez Sultana MD Unavailable [phone] Michele Orr MD Unavailable Reason for Visit * Reason Comments Medication Refill Encounter Details Date Type Department Care Team (Late st Contact Info) Description 10/14/2023 Refill [facility] - Internal Medicine - [place] [address] [place] [address] Josr Rodriguez MD [address] [place] [address] Medication Refill Social History Tobacco [...] often do you attend chur ch or islam services? Never 07/05/2023 Do you belong to any clubs o r organizations such as christian groups, unions, fraternal or athletic groups, or [...] Total Score - Questions 1-9 0 05/31 [facility] - Occupational Stress Questionnaire Answer Date [...] place to sleep or slept in a correction (including now)? 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 Not on file Not on file documented as of this encounter Plan of Treatment Upcoming Encounters Date Type Department Care Team (Late st Contact Info) Description 02/04/2025 8:45 AM CDT Office Visit [facility] - Internal Medicine [place] [address] [place] [address] Josr Rodriguez MD [address] [place] [address] documented as of this encounter Visit Diagnoses Not on filedocumented in this encounter Additional Health Concerns Assessment Noted Time PHQ-9 Depression Total Score: 0 07/05/19 24 9:59 AM OUTER DIAMETER GRINDER documented as of this encounter Care Teams Grief Counsellor Relationship Specialty Start Date End Date Josr Rodriguez MD [address] [place] [address] PCP - General Internal Medicine 06/30/15 Luis Jhaveri DPM [address] [place] [address] Podiatry 12/09/15 Mendez Sultana MD [address] [address] General Surgery 04/28/16 Michele Orr MD [address] [address] Consulting Physician Colon and Rectal Surgery 04/20/24 documented as of this encounter
[2024-10-16 17:16] LABS: Alanine Aminotransferase 19 U/L (6-35); Albumin Level 4.5 g/dL (3.5-5.1); Alkaline Phosphatase 114 U/L (38-126); Anion Gap 10 mmol/L (4-12); Aspartate Amino Transferase 33 U/L (14-36); Bilirubin,Total 1.1 mg/dL (0.2-1.3); Blood Urea Nitrogen 18 mg/dL (7-17); Carbon Dioxide 28 mmol/L (22-30); Chloride 101 mmol/L (98-107); Estimated Glomerular Filt Rate > 60; Glucose 94 mg/dL (65-110); Potassium 3.4 mmol/L (3.4-5.0); Sodium 139 mmol/L (137-145); Uric Acid 4.6 mg/dL (2.5-7.5)
== END 2024-10-16 15:51 | disposition home or self-care (01) ==
LOC: ANHLAB 15:57
PROVIDERS: PCP Internal Medicine; Visit Provider Podiatrist Foot & Ankle Surgery
DX: M10.079 Idiopathic gout, unspecified ankle and foot (principal)
CPT/HCPCS: 36415; 80053; 84550